=== PATIENT | female | born 1925 | race Caucasian/White ===

== ENCOUNTER → 2016-07-01 | Day surgery (SDC) | payer MEDICARE, BC ==
[~2016-07-01] VITALS: Ht 134.6 cm; Wt 47.7 kg
[~2016-07-01] MED LIST: ALPHAGAN 05 ML/1 BOT OPHTH; BACTROBAN N1 GM/TUBE TOP; COSOPT DROPS 1010 ML OPHTH; COUMADIN ** IA3 MG PO; DELTASONE5 MG PO; HYDROCODON-ACE1 EAC6 PO; PRESERVISION A1 EACH PO; TYLENOL WITH C1 EACH PO; VITAMIN D31000 UNI1 PO; XALATAN2.5 ML OPHTH
--- NOTE | ~2016-07-01 | OR ---
PATIENT'S NAME: JEANETTE COOK [facility] AGE: 89 Y [address] ROOM: [place] [address] LOCATION: [facility] [place] DATE: 07/01/2016 OR/Procedure Report DISCHARGE DATE: FAMILY PHYSICIAN: Corey Son MD ATTENDING PHYSICIAN: Patrice Kinney V SURGEON: Patrice Kinney MD PARAMEDICAL AIDE: LUIS FELIPE Dougherty. DATE OF PROCEDURE: 07/01/2016 POSTOPERATIVE DIAGNOSIS: Basal cell carcinoma, left nasal tip. POSTOPERATIVE DIAGNOSIS: Basal cell carcinoma, left nasal tip. OPERATION/PROCEDURE: Excision of 2.5 x 3 cm basal cell carcinoma, left nasal tip with intranasal extension. Bilobed rotation flap reconstruction. ANESTHESIA: General endotracheal anesthesia. ESTIMATED BLOOD LOSS: Minimal. COMPLICATIONS: None. DESCRIPTION OF PROCEDURE: The patient was taken to the operating room, laid in supine position with general endotracheal anesthesia. Placed in upright position. The patient had a large previously biopsied basal cell carcinoma, left nasal tip. There was a notch within the lower nasal alar rim measuring approximately 1.5 cm. The proposed incision line was then infiltrated with 2% lidocaine with epinephrine solution. The patient's face was prepped and draped in usual sterile fashion in preparation for a possible midline forehead flap. A 2.5 x 2.5 cm elliptical skin incision was then performed. Using a #15 blade, subcutaneous tissues divided down to the lower lateral cartilage. Subcutaneous tissues were taken off the lower lateral cartilage and this was followed laterally. Specimen was marked, removed, and sent for pathology. Hemostasis was obtained using Bovie electrocautery. The skin edges were undermined using curved iris scissors. Frozen section pathology revealed inferior as well as lateral margins were positive. An additional approximately 0.5 cm margin extending laterally across the nasal alar cartilage on the outside of the notch. The inferior margin was the previously aforementioned notch. Subsequently, a V-shaped intranasal incision was performed using a #15 blade excising the inferior margin as well as the intranasal mucosa. This was marked and sent for frozen section pathology. Frozen section pathology revealed all margins were clear. The intranasal mucosa was approximated using interrupted 4-0 chromic sutures. The skin was approximated making the left nostril significantly smaller. The upper portion of the lower lateral cartilage were trimmed, right and left respectively, to PATIENT'S NAME: JUDAH COOKJEAN [facility] AGE: 89 Y [address] ROOM: [place] [address] LOCATION: [facility] [place] DATE: 07/01/2016 OR/Procedure Report DISCHARGE DATE: FAMILY PHYSICIAN: Corey Son MD ATTENDING PHYSICIAN: Patrice Kinney V allow for movement of the nasal tip. A bilobed flap was marked and infiltrated with 2% lidocaine with epinephrine solution. A bilobed flap was then rotated into place. This was approximated using interrupted 6-0 Ethilon sutures. Burow's triangle was then excised along the nasal alar rim with a #15 blade. This was closed with interrupted 6-0 Ethilon suture. The patient tolerated the procedure well. 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 Subsequently 7 nasal trumpet was cut, placed within the left nostril, and sutured in place using 2-0 Prolene suture. The patient tolerated the procedure well. Bactroban ointment was applied. The patient was aroused, extubated, and discharged from the operating room to recovery room in satisfactory condition. PATRICE KINNEY MD TVC/modl /[id number] d: 07/01/16 2159 t: 07/08/16 0734, OPERATIVE SUMMARY
== END | disposition disaster alternative care site (69) ==
LOC: GPOC 06-25 13:00 → GSDC 07:00
PROC: 0HB1XZZ Excision of Face Skin, External Approach (ICD-10-PCS; principal; 2016-07-01)
PROC: 0HX1XZZ Transfer Face Skin, External Approach (ICD-10-PCS; principal; 2016-07-01)
DX: C44.311 Basal cell carcinoma of skin of nose (principal); Z86.711 Personal history of pulmonary embolism; Z79.01 Long term (current) use of anticoagulants; E11.9 Type 2 diabetes mellitus without complications; M35.3 Polymyalgia rheumatica; Z79.52 Long term (current) use of systemic steroids
CPT/HCPCS: J2001; J7030